=== PATIENT | female | born 1995 | race Caucasian/White ===

== ENCOUNTER 2016-07-31 07:49 | Emergency (ER) | payer MEDICAID ==
[~2016-07-31] VITALS: Ht 170.2 cm; Wt 72.0 kg
[~2016-07-31 07:49] MED LIST: ALPR0.254 PO; CITA40TA12 PO
[2016-07-31] MEDS ORDERED: LORazepam 2 MG/ML, 1ML IM ONE (08:00)
[2016-07-31] MEDS ORDERED: SODIUM CHLORIDE 0.9% 1,000ML IVBOLUS ONE (08:00)
[2016-07-31] MEDS ORDERED: LORazepam 2 MG/ML, 1ML ONE (08:08)
[2016-07-31 08:22] LABS: HEMOGLOBIN 13.9 g/dL (11.7-16.4)
[2016-07-31 08:31] LABS: ASPARTATE AMINO TRANSFERASE 17 U/L (15-37); BLOOD UREA NITROGEN 9 mg/dL (7-18)
[2016-07-31 08:33] LABS: ACETAMINOPHEN < 2 mcg/mL (10-30)
[2016-07-31 08:38] LABS: DAU SCREEN DISCLAIMER
[2016-07-31 09:25] VITALS: BP 124/65
== END 2016-07-31 09:27 | disposition home or self-care (01) ==
LOC: ED 08:13
DX: F10.129 Alcohol abuse with intoxication, unspecified (principal)
CPT/HCPCS: 36415; 80053; 80307; 80329; 81001; 84703; 85025; 87086; 93005; 96360; 96372; 99285; J2060; J7030; G0480

== ENCOUNTER 2016-09-03 09:12 | Emergency (ER) | payer MEDICAID, OTHER ==
[~2016-09-03] VITALS: Ht 170.2 cm; Wt 73.0 kg
[2016-09-03] MEDS ORDERED: ONDANSETRON 2MG/ML, 2ML IVPush ONE (10:00)
[2016-09-03] MEDS ORDERED: FAMOTIDINE 20 MG/2 ML IVP ONE (10:00)
[2016-09-03] MEDS ORDERED: SODIUM CHLORIDE 0.9% 1,000ML IVBOLUS ONE (10:00)
[2016-09-03] MEDS ORDERED: SODIUM CHLORIDE FLUSH 10ML SYR IVF ONE (10:00)
[2016-09-03] MEDS ORDERED: ONDANSETRON 2MG/ML, 2ML ONE (10:35)
[2016-09-03] MEDS ORDERED: FAMOTIDINE 20 MG/2 ML ONE (10:35)
[2016-09-03 10:41] LABS: BLOOD UREA NITROGEN 11 mg/dL (7-18)
[2016-09-03 11:07] LABS: HCG UR OBC PASS
[2016-09-03 12:09] VITALS: BP 112/71
== END 2016-09-03 12:12 | disposition home or self-care (01) ==
LOC: ED 11:25
DX: K52.29 Other allergic and dietetic gastroenteritis and colitis (principal)
CPT/HCPCS: 36415; 80048; 81025; 82040; 85025; 96361; 96374; 96375; 99284; J2405; J7030; S0028

== ENCOUNTER → 2017-01-16 | Outpatient (CLI) | payer OTHER, MEDICAID ==
[~2017-01-16] MED LIST changes: +OXYC-306 PO
== END ==
LOC: STAR 10:43
PROVIDERS: ATTEND Obstetrics & Gynecology Female Pelvic Medicine and Reconstructive Surgery
DX: Z02.9 Encounter for administrative examinations, unspecified (principal)

== ENCOUNTER 2017-01-21 12:40 | Day surgery (SDC) | payer OTHER, MEDICAID ==
[~2017-01-21] VITALS: Ht 170.2 cm; Wt 76.0 kg
[~2017-01-21 12:40] MED LIST changes: +BUPIVACAINE/PF 0.25% ONE; +EPINEPHRINE 1 MG/ML, 1ML ONE
[2017-01-21] MEDS ORDERED: LACTATED RINGERS 1,000 ML IV SCH (13:14)
[2017-01-21 13:18] VITALS: BP 128/88
[2017-01-21 13:46] LABS: HCG UR OBC PASS
[2017-01-21] MEDS ORDERED: MIDAZOLAM 1 MG/ML, 2ML ONE (16:52)
[2017-01-21] MEDS ORDERED: FENTANYL PF 100 MCG/2ML ONE ×3 (16:52→18:31)
[2017-01-21] MEDS ORDERED: PROPOFOL 10 MG/ML, 20ML ONE (17:38)
[2017-01-21] MEDS ORDERED: ONDANSETRON 2MG/ML, 2ML ONE (17:38)
[2017-01-21] MEDS ORDERED: KETOROLAC 30 MG/1 ML ONE (17:38)
[2017-01-21] MEDS ORDERED: ROCURONIUM 10 MG/ML ONE (17:38)
[2017-01-21] MEDS ORDERED: CEFAZOLIN 1,000 MG ONE (17:38)
[2017-01-21] MEDS ORDERED: DEXAMETHASONE 4 MG/ML, 1ML ONE (17:38)
[2017-01-21] MEDS ORDERED: GLYCOPYRROLATE 0.2MG/1ML, 5ML ONE (17:38)
[2017-01-21] MEDS ORDERED: NEOSTIGMINE 1 MG/ML, 10ML ONE (17:38)
[2017-01-21] MEDS ORDERED: FENTANYL PF 100 MCG/2ML IV PRN (18:00)
[2017-01-21] MEDS ORDERED: OXYcodone 5 MG/5 ML ORAL.SOL UDC PO PRN (18:00)
[2017-01-21] MEDS ORDERED: MEPERIDINE/PF 25MG/0.5ML IVPush PRN (18:00)
[2017-01-21] MEDS ORDERED: PROMETHAZINE 25 MG/ML, 1ML IV PRN (18:00)
[2017-01-21] MEDS ORDERED: HYDROmorphone 1 MG/ML, 1ML IV PRN ×2 (18:00→21:00)
[2017-01-21] MEDS ORDERED: ONDANSETRON 2MG/ML, 2ML IVPush PRN (18:00)
[2017-01-21] MEDS ORDERED: ACETAMINOPHEN 325 MG TABLET PO PRN (18:00)
[2017-01-21] MEDS ORDERED: morphine SULFATE 10 MG/ML, 1ML ONE (18:20)
[2017-01-21] MEDS ORDERED: morphine SULFATE 10 MG/ML, 1ML IV PRN (18:30)
[2017-01-21] MEDS ORDERED: OXYcodone 5 MG/5 ML ORAL.SOL UDC ONE (18:31)
[2017-01-21 20:00] VITALS: BP 120/78
[2017-01-21] MEDS ORDERED: OXYcodone/APAP 5/325MG TABLET PO PRN (21:00)
[2017-01-21] MEDS ORDERED: OXYcodone/APAP 7.5/325MG TABLET PO PRN (21:00)
[2017-01-21] MEDS ORDERED: IBUPROFEN 600 MG TABLET PO PRN (21:00)
[2017-01-21] MEDS ORDERED: CITALOPRAM 20 MG TABLET PO SCH (21:00)
[2017-01-22] MEDS ORDERED: KETOROLAC 30 MG/1 ML IV PRN (00:30)
== END 2017-01-21 22:36 | disposition home or self-care (01) ==
LOC: OUT 12:40 → 4NOR 20:22 → OUT 22:36
PROVIDERS: ATTEND Obstetrics & Gynecology Female Pelvic Medicine and Reconstructive Surgery
DX: N94.6 Dysmenorrhea, unspecified (principal); N94.10 Unspecified dyspareunia; N80.3 Endometriosis of pelvic peritoneum; Z91.09 Other allergy status, other than to drugs and biological substances
CPT/HCPCS: 58662; 81025; J0171; J0690; J1100; J1885; J2250; J2270; J2405; J2704; J2710; J3010; J3490; J7120

== ENCOUNTER 2017-01-23 14:45 | Emergency (ER) | payer OTHER, MEDICAID ==
[~2017-01-23] VITALS: Ht 170.2 cm; Wt 76.7 kg
[~2017-01-23 14:45] MED LIST changes: -BUPIVACAINE/PF 0.25% ONE; -EPINEPHRINE 1 MG/ML, 1ML ONE
[2017-01-23 14:50] VITALS: BP 108/74
[2017-01-23] MEDS ORDERED: ONDANSETRON 2MG/ML, 2ML IVPush ONE (15:30)
[2017-01-23] MEDS ORDERED: SODIUM CHLORIDE FLUSH 10ML SYR IVF ONE (15:30)
[2017-01-23] MEDS ORDERED: MORPHINE SULFATE 4 MG/ML, 1ML IVPush PRN (15:30)
[2017-01-23] MEDS ORDERED: SODIUM CHLORIDE 0.9% 1,000ML IVBOLUS ONE (15:30)
[2017-01-23 15:46] LABS: HEMATOCRIT 43.5 % (34.6-47.8); HEMOGLOBIN 14.5 g/dL (11.7-16.4); WHITE BLOOD COUNT 7.9 x10^3/uL (4.5-13.2)
[2017-01-23 15:59] LABS: BLOOD UREA NITROGEN 12 mg/dL (7-18)
[2017-01-23] MEDS ORDERED: MORPHINE SULFATE 4 MG/ML, 1ML ONE (17:20)
[2017-01-23] MEDS ORDERED: ONDANSETRON 2MG/ML, 2ML ONE (17:20)
[2017-01-23] MEDS ORDERED: OMNIPAQUE 350 MG/ML, 100ML BOTTLE ONE (18:15)
== END 2017-01-23 19:42 | disposition home or self-care (01) ==
LOC: ED 18:25
DX: T81.89XA Other complications of procedures, not elsewhere classified, initial encounter (principal); G89.18 Other acute postprocedural pain; Y83.9 Surgical procedure, unspecified as the cause of abnormal reaction of the patient, or of later complication, without mention of misadventure at the time of the procedure
CPT/HCPCS: 36415; 74177; 80048; 81001; 82040; 84703; 85025; 96361; 96374; 96375; 99285; J2405; J7030; Q9967

== ENCOUNTER 2017-02-10 16:00 | Emergency (ER) | payer OTHER, MEDICAID ==
[~2017-02-10] VITALS: Ht 170.2 cm; Wt 77.5 kg
[2017-02-10 16:00] VITALS: BP 132/81
[2017-02-10] MEDS ORDERED: KETOROLAC 30 MG/1 ML ONE (16:12)
[2017-02-10] MEDS ORDERED: KETOROLAC 30 MG/1 ML IM ONE (16:30)
== END 2017-02-10 16:54 | disposition home or self-care (01) ==
LOC: ED 16:29
DX: S90.32XA Contusion of left foot, initial encounter (principal); F41.9 Anxiety disorder, unspecified; W22.8XXA Striking against or struck by other objects, initial encounter; Y93.02 Activity, running; Y92.098 Other place in other non-institutional residence as the place of occurrence of the external cause; Y99.8 Other external cause status
CPT/HCPCS: 73630; 96372; 99284; J1885